=== PATIENT | female | born 2000 | race Caucasian/White ===

== ENCOUNTER 2020-10-10 10:21 | Inpatient (IN) | payer OTHER ==
[~2020-10-10] VITALS: Ht 162.6 cm; Wt 121.6 kg
[2020-10-10 11:43] LABS: COVID AG,FIA SOURCE NASOPHARYNGEAL
[2020-10-10] MEDS ORDERED: BREX2TAB PO (11:54)
[2020-10-10] MEDS ORDERED: DIVA-80 PO (11:54)
[2020-10-10] MEDS ORDERED: DULO-8 PO (11:54)
[2020-10-10] MEDS ORDERED: SUVO10TA PO (11:54)
[2020-10-10] MEDS ORDERED: BACITRACIN 0.9 GM PACKET OINTMENT TP ONE (12:00)
[2020-10-10] MEDS ORDERED: QUET100T PO (12:01)
[2020-10-10] MEDS ORDERED: LEVO25TA9 PO (12:01)
[2020-10-10] MEDS ORDERED: METH-661 PO (12:01)
[2020-10-10] MEDS ORDERED: TRAZ-257 PO (12:01)
[2020-10-10] MEDS ORDERED: LIDO1ADH48 TP (12:01)
[2020-10-10] MEDS ORDERED: PANT-31 PO (12:01)
[2020-10-10] MEDS ORDERED: PALI6TAB15 PO (12:01)
[2020-10-10] MEDS ORDERED: PROP40TA7 PO (12:01)
[2020-10-10] MEDS ORDERED: CLON-592 PO (12:01)
[2020-10-10] MEDS ORDERED: IBUP200C5 PO (12:01)
[2020-10-10] MEDS ORDERED: DOCU-275 PO (12:01)
[2020-10-10] MEDS ORDERED: CLON-820 PO (12:01)
[2020-10-10] MEDS ORDERED: HALOPERIDOL 5 MG TABLET PO PRN (12:15)
[2020-10-10] MEDS ORDERED: LORazepam 2 MG TABLET PO PRN (12:15)
[2020-10-10 12:42] LABS: BASOPHILS % (AUTO) 0.8 % (0.0-2.0); HEMATOCRIT 37.4 % (36-46); HEMOGLOBIN 12.3 g/dL (12.0-16.0); LYMPHOCYTES # (AUTO) 2.3 K/uL (1.0-4.8); LYMPHOCYTES % (AUTO) 18.9 % (22.0-44.0); MEAN CORPUSCULAR HEMOGLOBIN 28.2 pg (26.0-34.0); MEAN CORPUSCULAR HGB CONC 32.9 G/dL (31.0-37.0); MEAN CORPUSCULAR VOLUME 86 fL (80-100); MONOCYTES # (AUTO) 0.8 K/uL (0.1-1.0); MONOCYTES % (AUTO) 6.4 % (2.0-9.0); NEUTROPHILS # (AUTO) 8.4 K/uL (1.8-7.7); NEUTROPHILS % (AUTO) 70.9 % (40.0-70.0); PLATELET COUNT (AUTO) 341 K/uL (150-450); RED BLOOD CELL COUNT(AUTO) 4.36 MIL/uL (4.00-5.20)
[2020-10-10 12:51] LABS: ANION GAP 9 mmol/L (8-16); CALCIUM, TOTAL 8.7 mg/dL (8.8-10.5); CARBON DIOXIDE 24 mmol/L (22-29); CHLORIDE 103 mmol/L (98-107); CREATININE 0.87 mg/dL (0.60-1.30); GLOMERULAR FILTR. RATE CALC > 60 mL/min (>60); GLUCOSE,RANDOM 91 mg/dL (70-110); POTASSIUM 3.9 mmol/L (3.5-5.1); SODIUM SERUM 136 mmol/L (136-145); UREA NITROGEN, BLOOD 15 mg/dL (7-18)
[2020-10-10 13:02] LABS: ALANINE AMINOTRANSFERASE 20 U/L (12-78); ALBUMIN 3.4 g/dL (3.4-5.0); ALKALINE PHOSPHATASE 72 U/L (46-116); ASPARTATE AMINOTRANSFERASE 14 U/L (15-37); BILIRUBIN,TOTAL 0.3 mg/dL (0.1-1.0); HCG,QUANTITATIVE < 1 mIU/mL (0-6); TOTAL PROTEIN, SERUM 7.1 g/dL (6.4-8.2)
[2020-10-10 16:18] VITALS: BP 105/61
[2020-10-10] MEDS: BACITRACIN 28 GM OINTMENT TP SCH (17:53)
[2020-10-10] MEDS: PANTOPRAZOLE SODIUM 40 MG DR TABLET PO SCH (17:53)
[2020-10-11 06:19] VITALS: BP 109/60
[2020-10-11 08:27] VITALS: BP 111/70
[2020-10-11] MEDS: PANTOPRAZOLE SODIUM 40 MG DR TABLET PO SCH ×2 (09:05→16:55)
[2020-10-11] MEDS: BACITRACIN 28 GM OINTMENT TP SCH ×2 (09:05→16:56)
[2020-10-11] MEDS ORDERED: PETROLATUM,WHITE 28 GM JELLY TP PRN (09:30)
[2020-10-11] MEDS ORDERED: ONDANSETRON HCL 4 MG TABLET PO PRN (09:30)
[2020-10-11] MEDS ORDERED: ALBUTEROL SULFATE HFA 90 MCG/PUFF 8 GM INHALER IH PRN (09:30)
[2020-10-11] MEDS ORDERED: NICOTINE 14 MG/24 HOUR PATCH TD PRN (09:30)
[2020-10-11] MEDS ORDERED: MAG HYDROX/AL HYDROX/SIMETH ES 30 ML SUSPENSION UDCUP PO PRN (09:30)
[2020-10-11] MEDS ORDERED: DOCUSATE SODIUM 100 MG CAPSULE PO PRN ×2 (09:30)
[2020-10-11] MEDS ORDERED: GuaiFENesin/D-METHORPHAN [SUGAR-FREE] 200-20MG/10 ML SYRUP UDCUP PO PRN (09:30)
[2020-10-11] MEDS ORDERED: ACETAMINOPHEN 325 MG TABLET PO PRN (09:30)
[2020-10-11] MEDS ORDERED: MAGNESIUM HYDROXIDE SUSPENSION 30 ML UDCUP PO PRN (09:30)
[2020-10-11] MEDS ORDERED: LOPERAMIDE HCL 2 MG CAPSULE PO PRN (09:30)
[2020-10-11] MEDS ORDERED: METHOCARBAMOL 750 MG TABLET PO PRN (09:30)
[2020-10-11] MEDS ORDERED: CloNIDine HCL 0.1 MG TABLET PO PRN (09:30)
[2020-10-11] MEDS ORDERED: PROP80SR PO (13:00)
[2020-10-11] MEDS: QUEtiapine FUMARATE 100 MG TABLET PO SCH (16:55)
[2020-10-11 17:51] VITALS: BP 101/76
[2020-10-11] MEDS: PALIPERIDONE 6 MG ER TABLET PO SCH (20:41)
[2020-10-11] MEDS: DIVALPROEX SODIUM 500 MG ER TABLET PO SCH (20:41)
[2020-10-11] MEDS: TraZODone HCL 100 MG TABLET PO SCH (20:41)
[2020-10-11] MEDS: ZOLPIDEM TARTRATE 10 MG TABLET PO PRN (20:49)
[2020-10-11] MEDS: BREXPIPRAZOLE 1 MG TABLET PO SCH (22:07)
[2020-10-12 06:52] VITALS: BP 104/63
[2020-10-12] MEDS: LEVOTHYROXINE SODIUM 25 MCG TABLET PO SCH (06:54)
[2020-10-12 07:55] LABS: BASOPHILS % (AUTO) 0.7 % (0.0-2.0); EOSINOPHILS % (AUTO) 4.7 % (1.0-6.0); HEMATOCRIT 38.2 % (36-46); HEMOGLOBIN 12.5 g/dL (12.0-16.0); LYMPHOCYTES # (AUTO) 2.6 K/uL (1.0-4.8); LYMPHOCYTES % (AUTO) 23.7 % (22.0-44.0); MEAN CORPUSCULAR HEMOGLOBIN 27.8 pg (26.0-34.0); MEAN CORPUSCULAR HGB CONC 32.7 G/dL (31.0-37.0); MEAN CORPUSCULAR VOLUME 85 fL (80-100); MONOCYTES # (AUTO) 0.8 K/uL (0.1-1.0); MONOCYTES % (AUTO) 7.3 % (2.0-9.0); NEUTROPHILS # (AUTO) 7.1 K/uL (1.8-7.7); NEUTROPHILS % (AUTO) 63.6 % (40.0-70.0); PLATELET COUNT (AUTO) 356 K/uL (150-450); RED CELL DISTRIBUTION WIDTH 13.2 % (11.5-14.5)
[2020-10-12 08:23] LABS: ALANINE AMINOTRANSFERASE 16 U/L (12-78); ALBUMIN 3.2 g/dL (3.4-5.0); ALKALINE PHOSPHATASE 75 U/L (46-116); ANION GAP 13 mmol/L (8-16); ASPARTATE AMINOTRANSFERASE 11 U/L (15-37); BILIRUBIN,TOTAL 0.2 mg/dL (0.1-1.0); CALCIUM, TOTAL 9.4 mg/dL (8.8-10.5); CARBON DIOXIDE 22 mmol/L (22-29); CHLORIDE 103 mmol/L (98-107); CREATININE 0.84 mg/dL (0.60-1.30); GLOMERULAR FILTR. RATE CALC > 60 mL/min (>60); GLUCOSE,RANDOM 94 mg/dL (70-110); POTASSIUM 3.8 mmol/L (3.5-5.1); SODIUM SERUM 138 mmol/L (136-145); UREA NITROGEN, BLOOD 16 mg/dL (7-18)
[2020-10-12 08:25] LABS: CHOL/HDL RATIO 4.1 (3.9-5.7)
[2020-10-12 08:50] VITALS: BP 118/75
[2020-10-12] MEDS: BACITRACIN 28 GM OINTMENT TP SCH ×2 (09:00→16:36)
[2020-10-12 11:17] LABS: FREE T4 (FREE THYROXINE) 1.09 ng/dL (0.76-1.46); THYROID STIMULATING HORMONE 2.18 uIU/mL (0.36-3.74)
[2020-10-12] MEDS: DULoxetine HCL 60 MG CAPSULE PO SCH (12:06)
[2020-10-12] MEDS: MULTIVITAMINS WITH MINERALS, THERAPEUTIC TABLET PO SCH (12:06)
[2020-10-12] MEDS: PANTOPRAZOLE SODIUM 40 MG DR TABLET PO SCH ×2 (12:07→16:36)
[2020-10-12] MEDS: ClonazePAM 0.5 MG TABLET PO SCH (12:07)
[2020-10-12] MEDS: QUEtiapine FUMARATE 100 MG TABLET PO SCH ×2 (12:07→16:36)
[2020-10-12] MEDS: DIVALPROEX SODIUM 500 MG ER TABLET PO SCH (20:13)
[2020-10-12] MEDS: PALIPERIDONE 6 MG ER TABLET PO SCH (20:13)
[2020-10-12] MEDS: BREXPIPRAZOLE 1 MG TABLET PO SCH (20:13)
[2020-10-12] MEDS: TraZODone HCL 100 MG TABLET PO SCH (20:13)
[2020-10-12] MEDS: IBUPROFEN 400 MG TABLET PO PRN (20:14)
[2020-10-13 01:19] VITALS: BP 132/79
[2020-10-13] MEDS: LEVOTHYROXINE SODIUM 25 MCG TABLET PO SCH (06:28)
[2020-10-13 07:10] LABS: APPEARANCE,URINE CLEAR (CLEAR); BILIRUBIN,URINE NEGATIVE (NEGATIVE); GLUCOSE, URINE (UA) NEGATIVE (NEGATIVE); KETONES,URINE TRACE mg/dL (NEGATIVE); LEUKOCYTE ESTERASE ,URINE TRACE (NEGATIVE); NITRATE,URINE NEGATIVE (NEGATIVE); OCCULT BLOOD,URINE NEGATIVE (NEGATIVE); PROTEIN,URINE NEGATIVE (NEGATIVE); UROBILINOGEN,URINE 0.2 mg/dL (<=1.0)
[2020-10-13 07:15] LABS: AMPHET/METH SCREEN,URINE NEGATIVE (NEGATIVE); BARBITURATE SCREEN, URINE NEGATIVE (NEGATIVE); BENZODIAZEPINES SCREEN,URINE NEGATIVE (NEGATIVE); CANNABINOID SCREEN,URINE NEGATIVE (NEGATIVE); COCAINE SCREEN,URINE NEGATIVE (NEGATIVE); METHADONE SCREEN, URINE NEGATIVE (NEGATIVE); OPIATE SCREEN,URINE NEGATIVE (NEGATIVE); PHENCYCLIDINE SCREEN,URINE NEGATIVE (NEGATIVE)
[2020-10-13 07:27] LABS: BACTERIA,URINE None Seen /HPF (None Seen); RBC,URINE None Seen /HPF (0-2); SQUAMOUS EPITHELIAL CELL,UR Rare /LPF (None Seen); WBC,URINE 0-2 /HPF (0-5)
[2020-10-13 08:52] VITALS: BP 123/74
[2020-10-13] MEDS: BACITRACIN 28 GM OINTMENT TP SCH ×2 (09:00→16:42)
[2020-10-13] MEDS: PANTOPRAZOLE SODIUM 40 MG DR TABLET PO SCH ×2 (09:50→16:38)
[2020-10-13] MEDS: DULoxetine HCL 60 MG CAPSULE PO SCH (09:50)
[2020-10-13] MEDS: ClonazePAM 0.5 MG TABLET PO SCH (09:50)
[2020-10-13] MEDS: QUEtiapine FUMARATE 100 MG TABLET PO SCH ×2 (09:50→16:38)
[2020-10-13] MEDS: MULTIVITAMINS WITH MINERALS, THERAPEUTIC TABLET PO SCH (09:50)
[2020-10-13] MEDS: IBUPROFEN 400 MG TABLET PO PRN ×2 (09:53→20:22)
[2020-10-13] MEDS: LORATADINE 10 MG TABLET PO SCH (13:29)
[2020-10-13 16:18] VITALS: BP 105/60
[2020-10-13] MEDS: PALIPERIDONE 6 MG ER TABLET PO SCH (20:09)
[2020-10-13] MEDS: BREXPIPRAZOLE 1 MG TABLET PO SCH (20:09)
[2020-10-13] MEDS: DIVALPROEX SODIUM 500 MG ER TABLET PO SCH (20:09)
[2020-10-13] MEDS: TraZODone HCL 100 MG TABLET PO SCH (20:09)
[2020-10-14 02:11] VITALS: BP 102/63
[2020-10-14] MEDS: LEVOTHYROXINE SODIUM 25 MCG TABLET PO SCH (06:27)
[2020-10-14] MEDS: ClonazePAM 0.5 MG TABLET PO SCH (08:21)
[2020-10-14] MEDS: DULoxetine HCL 60 MG CAPSULE PO SCH (08:21)
[2020-10-14] MEDS: MULTIVITAMINS WITH MINERALS, THERAPEUTIC TABLET PO SCH (08:21)
[2020-10-14] MEDS: PANTOPRAZOLE SODIUM 40 MG DR TABLET PO SCH ×2 (08:21→16:35)
[2020-10-14] MEDS: QUEtiapine FUMARATE 100 MG TABLET PO SCH ×2 (08:21→16:35)
[2020-10-14] MEDS: LORATADINE 10 MG TABLET PO SCH (08:21)
[2020-10-14 08:28] VITALS: BP 107/64
[2020-10-14] MEDS: BACITRACIN 28 GM OINTMENT TP SCH ×2 (10:23→16:34)
[2020-10-14 16:15] VITALS: BP 132/83
[2020-10-14] MEDS: IBUPROFEN 400 MG TABLET PO PRN (19:45)
[2020-10-14] MEDS: DIVALPROEX SODIUM 500 MG ER TABLET PO SCH (20:02)
[2020-10-14] MEDS: PALIPERIDONE 6 MG ER TABLET PO SCH (20:02)
[2020-10-14] MEDS: TraZODone HCL 100 MG TABLET PO SCH (20:02)
[2020-10-14] MEDS: ZOLPIDEM TARTRATE 10 MG TABLET PO PRN (21:08)
[2020-10-15] MEDS: LEVOTHYROXINE SODIUM 25 MCG TABLET PO SCH (06:00)
[2020-10-15 06:05] VITALS: BP 122/67
[2020-10-15 07:52] LABS: COVID AG,FIA SOURCE NASOPHARYNGEAL
[2020-10-15] MEDS: PANTOPRAZOLE SODIUM 40 MG DR TABLET PO SCH (08:02)
[2020-10-15] MEDS: MULTIVITAMINS WITH MINERALS, THERAPEUTIC TABLET PO SCH (08:02)
[2020-10-15] MEDS: ClonazePAM 0.5 MG TABLET PO SCH (08:02)
[2020-10-15] MEDS: DULoxetine HCL 60 MG CAPSULE PO SCH (08:02)
[2020-10-15] MEDS: QUEtiapine FUMARATE 100 MG TABLET PO SCH (08:02)
[2020-10-15] MEDS: LORATADINE 10 MG TABLET PO SCH (08:02)
[2020-10-15] MEDS: BACITRACIN 28 GM OINTMENT TP SCH (08:06)
[2020-10-15 08:10] VITALS: BP 129/74
[2020-10-15] MEDS ORDERED: BACI28.42 TP (11:14)
[2020-10-15] MEDS ORDERED: LORA10TA7 PO (11:15)
== END 2020-10-15 14:32 | disposition home or self-care (01) | DRG 885 ==
LOC: EMS 10:29 → B2S 13:16
PROVIDERS: ADMIT Psychiatry & Neurology Child & Adolescent Psychiatry; ATTEND Psychiatry & Neurology Child & Adolescent Psychiatry
DX: F33.2 Major depressive disorder, recurrent severe without psychotic features (principal); R45.851 Suicidal ideations; Z68.42 Body mass index [BMI] 45.0-49.9, adult; D72.829 Elevated white blood cell count, unspecified; E03.9 Hypothyroidism, unspecified; E66.01 Morbid (severe) obesity due to excess calories; K21.9 Gastro-esophageal reflux disease without esophagitis; F60.3 Borderline personality disorder; F41.9 Anxiety disorder, unspecified; Z20.822 Contact with and (suspected) exposure to COVID-19; Z59.0 Homelessness; Z86.59 Personal history of other mental and behavioral disorders
CPT/HCPCS: 80053; 80061; 80307; 81001; 83036; 84439; 84443; 84702; 85025; 87081; 87426; 99285; A9575; G0480